=== PATIENT | female | born 1990 | race African-American/Black ===

== ENCOUNTER 2021-12-03 16:28 | Inpatient (IN) | payer MEDICAID ==
[~2021-12-03] VITALS: Ht 167.6 cm; Wt 59.0 kg
[2021-12-03 19:30] LABS: BASOPHILS % 0.2 % (0.0-2.0); EOSINOPHILS % 0.2 % (0.0-5.0); HEMATOCRIT. 39.2 % (36.0-48.0); HEMOGLOBIN. 12.9 g/dL (12.0-16.0); LYMPHOCYTES % 18.8 % (20.0-50.0); MEAN CORPUSCULAR HEMOGLOBIN 26.3 pg (28.0-32.0); MEAN CORPUSCULAR VOLUME 80.1 fL (81.0-99.0); MEAN PLATELET VOLUME 8.9 fl (7.4-10.4); MONOCYTES % 8.4 % (2.0-8.0); NEUTROPHILS % 72.4 % (40.0-76.0); PLATELET 292 x1000/uL (130-400); RED CELL DISTRIBUTION WIDTH 15.5 % (11.6-14.6)
[2021-12-03 19:43] LABS: CHLORIDE 105 mEq/L (98-107)
[2021-12-03 20:08] LABS: B-HCG QUANTITATIVE 72844 mIU/mL (<3)
[2021-12-03] MEDS ORDERED: ONDANSETRON HCL 4MG/2ML INJ IV STA (22:10)
[2021-12-03] MEDS ORDERED: SODIUM CHLORIDE 0.9% 1,000 ML IV ONE ×2 (22:15→22:30)
[2021-12-03 22:48] LABS: CLARITY URINE CLOUDY (CLEAR); COLOR URINE YELLOW (YELLOW); KETONES URINE 4+ (NEGATIVE); LEUKOCYTE ESTERASE URINE NEGATIVE (NEGATIVE); NITRITE URINE NEGATIVE (NEGATIVE); OCCULT BLOOD URINE 1+ (NEGATIVE); PROTEIN URINE NEGATIVE (NEGATIVE); SPECIFIC GRAVITY URINE 1.017 (1.005-1.030)
[2021-12-03 23:09] LABS: *AMPHETAMINES SCREEN URINE NEGATIVE (NEGATIVE); *BARBITURATES SCREEN URINE NEGATIVE (NEGATIVE); *BENZODIAZEPINES SCREEN URINE NEGATIVE (NEGATIVE); *COCAINE SCREEN URINE NEGATIVE (NEGATIVE); CANNABINOID URINE SCREEN NEGATIVE (NEGATIVE); METHADONE URINE SCREEN NEGATIVE (NEGATIVE); OPIATES URINE SCREEN NEGATIVE (NEGATIVE); PHENCYCLIDINE URINE SCREEN NEGATIVE (NEGATIVE)
[2021-12-04 02:37] VITALS: BP 115/65
[2021-12-04] MEDS ORDERED: PNV1TABL76 MT (02:54)
[2021-12-04 04:00] VITALS: BP 101/52
[2021-12-04] MEDS: SODIUM CHLORIDE 0.9% 1,000 ML IV SCH ×2 (06:47→15:35)
[2021-12-04] MEDS: ONDANSETRON HCL 4MG/2ML INJ IV PRN (06:56)
[2021-12-04 08:00] VITALS: BP 118/74
[2021-12-04 10:40] LABS: CHLORIDE 112 mEq/L (98-107)
[2021-12-04 12:00] VITALS: BP 91/52
[2021-12-04] MEDS: DOCUSATE SODIUM 100MG CAPSULE PO SCH (13:19)
[2021-12-04 16:05] VITALS: BP 94/55
[2021-12-04 20:00] VITALS: BP 119/65
[2021-12-05] VITALS: BP 95/58
[2021-12-05] MEDS: SODIUM CHLORIDE 0.9% 1,000 ML IV SCH (00:28)
[2021-12-05] MEDS ORDERED: HYDROCODONE/ACETAMINOPHEN 5/325MG TABLET PO PRN (00:45)
[2021-12-05] MEDS ORDERED: ACETAMINOPHEN 325MG TABLET PO PRN (00:45)
[2021-12-05] MEDS: ONDANSETRON HCL 4MG/2ML INJ IV PRN (01:02)
[2021-12-05 04:00] VITALS: BP 94/58
[2021-12-05] MEDS ORDERED: POTASSIUM CHLORIDE 20MEQ TABLET SR PO NR (07:00)
[2021-12-05 08:00] VITALS: BP 89/51
[2021-12-05] MEDS: DOCUSATE SODIUM 100MG CAPSULE PO SCH (08:49)
[2021-12-05 10:09] LABS: BASOPHILS % 0.3 % (0.0-2.0); EOSINOPHILS % 0.6 % (0.0-5.0); HEMATOCRIT. 36.3 % (36.0-48.0); HEMOGLOBIN. 11.5 g/dL (12.0-16.0); LYMPHOCYTES % 19.2 % (20.0-50.0); MEAN CORPUSCULAR HEMOGLOBIN 25.6 pg (28.0-32.0); MEAN CORPUSCULAR VOLUME 80.7 fL (81.0-99.0); MEAN PLATELET VOLUME 9.2 fl (7.4-10.4); MONOCYTES % 10.3 % (2.0-8.0); NEUTROPHILS % 69.6 % (40.0-76.0); PLATELET 232 x1000/uL (130-400); RED CELL DISTRIBUTION WIDTH 15.8 % (11.6-14.6)
[2021-12-05 10:24] LABS: CHLORIDE 110 mEq/L (98-107)
[2021-12-05] MEDS ORDERED: ONDA4TAB5 MT (10:47)
[2021-12-05 13:40] VITALS: BP 98/58
== END 2021-12-05 14:40 | disposition home or self-care (01) | DRG 566 ==
LOC: ER 16:28 → 8WST 23:12 → ENRESERV 12-04 00:14
PROVIDERS: ADMIT Internal Medicine; ATTEND Internal Medicine
DX: O21.1 Hyperemesis gravidarum with metabolic disturbance (principal); E88.89 Other specified metabolic disorders; E83.52 Hypercalcemia; Z3A.01 Less than 8 weeks gestation of pregnancy
CPT/HCPCS: 36415; 76801; 80048; 80053; 80305; 81003; 82330; 82652; 83970; 84443; 84702; 85025; 86850; 86900; 99285; J2405; J7030

== ENCOUNTER 2021-12-11 15:12 | Emergency (ER) | payer MEDICAID ==
[~2021-12-11] VITALS: Ht 167.6 cm; Wt 58.0 kg
[~2021-12-11 15:12] MED LIST: ONDA4TAB5 MT; PNV1TABL76 MT
[2021-12-11 15:20] VITALS: BP 112/73
[2021-12-11] MEDS ORDERED: METOCLOPRAMIDE HCL 10MG/2ML VIAL IV STA (16:44)
[2021-12-11] MEDS ORDERED: SODIUM CHLORIDE 0.9% 1,000 ML IV ONE (16:45)
[2021-12-11 17:17] LABS: BASOPHILS % 0.2 % (0.0-2.0); EOSINOPHILS % 0.1 % (0.0-5.0); HEMATOCRIT. 37.6 % (36.0-48.0); HEMOGLOBIN. 12.2 g/dL (12.0-16.0); MEAN CORPUSCULAR VOLUME 79.9 fL (81.0-99.0); MEAN PLATELET VOLUME 9.3 fl (7.4-10.4); MONOCYTES % 6.1 % (2.0-8.0); NEUTROPHILS % 82.6 % (40.0-76.0); PLATELET 285 x1000/uL (130-400); RED BLOOD CELL COUNT 4.71 mill/uL (4.2-5.4); RED CELL DISTRIBUTION WIDTH 15.2 % (11.6-14.6)
[2021-12-11 17:20] LABS: CHLORIDE 103 mEq/L (98-107)
[2021-12-11 17:31] LABS: BETA HYDROXYBUTYRATE 0.3 mMol/L (0.0-0.3)
[2021-12-11] MEDS ORDERED: PROC25SU2 RC (21:01)
== END 2021-12-11 22:30 | disposition home or self-care (01) ==
LOC: ER 15:12
DX: O26.891 Other specified pregnancy related conditions, first trimester (principal); E83.52 Hypercalcemia; Z3A.08 8 weeks gestation of pregnancy
CPT/HCPCS: 36415; 80053; 82010; 83690; 83735; 85025; 93005; 99284; J7030